=== PATIENT | female | born 1980 | race Caucasian/White ===

== ENCOUNTER 2018-10-20 15:13 | Emergency (ER) | payer SELFPAY ==
[~2018-10-20 15:13] MED LIST: ALPR-429 PO; CIT20 PO; CLO5 PO; CYCL10TA29 PO; FLU20 PO; IBU800 PO; IBUP800T37 PO; LOR5/325 PO; METR-1 PO; METR-119 PO; MOM PO; MULT-1379 PO; NAPR550T22 PO; NITR-105 PO; OXYC-373 PO; PER PO; PREN-85 PO; QUET25TA30 PO
[2018-10-20] MEDS ORDERED: NITROFURANTOIN MONO 100 MG PO ONE (16:05)
--- NOTE | 2018-10-20 16:05 | ER Report ---
History and Physical Time Seen By MD: 15:56 Hx. of Stated Complaint: Foul smelling urine HPI/ROS CHIEF COMPLAINT: Dysuria HISTORY OF PRESENT ILLNESS: 38-year-old female patient presents to emergency room with complaint of dysuria. Patient states that she has been having burning with urination for the past week. She states that it seems to come and go. She denies having any fevers, flank pain. She states she is not taking any medi cation for this. She denies any nausea, vomiting or diarrhea. Patient states that she feels like she has to go just as soon she is done urinating. Allergies: Coded Allergies: No Known Drug Allergies (Verified , 10/20/18) Home Meds Active Scripts Nitrofurantoin Monohyd/M-Cryst (MACROBID 100 MG CAPSULE) 100 Mg Capsule, 100 MG PO BID, #12 CAPSULE Prov:MAXWELL MENDOZA [facility] 10/20/18 Discontinued Reported Medications Multivits,Th W-Fe,Other Min (THERA-M) 1 Each Tablet, 1 EACH PO QDAY 11/10/17 Quetiapine Fumarate (SEROQUEL) 25 Mg Tablet, 25 MG PO Q4H PRN for PSYCHOSIS/AGITATION 11/10/17 Quetiapine Fumarate (SEROQUEL) 25 Mg Tablet, 50 MG PO QHS 11/10/17 Discontinued Scripts Nitrofurantoin Monohyd/M-Cryst (MACROBID 100 MG CAPSULE) 100 Mg Capsule, 100 MG PO BID, #12 CAPSULE Prov:MAXWELL MENDOZA [facility] 10/20/18 Past Medical/Surgical History Patient has a past medical history of alcohol abuse, depression, anxiety. Patient has a surgical history of tubal ligation. Reviewed Nurses Notes: Yes Hx Smoking: Yes Smoking Status: Light Tobacco Smoker Exposure to Second Hand Smoke?: Yes Hx Substance Use Disorder: No Hx Alcohol Use: Yes Constitutional Vital Sign - Last 24 Hours 10/20/18 10/20/18 15:17 16:17 Temp 97.1 Pulse 83 Resp 16 B/P (MAP) 127/102 125/82 (96) Pulse Ox 93 O2 Delivery Room Air Physical Exam General appearance: Alert no distress. Respiratory: Chest is non tender, lungs are clear to auscultation. Cardiac: Regular rate and rhythm. Gastrointestinal: Patient has no abdominal tenderness, bowel sounds are active 4, patient had no CVA tenderness. DIFFERENTIAL DIAGNOSIS: After history and physical exam differential diagnosis was considered for urinary tract infection, inflammation of the urethra. Medical Decision Making Data Points Laboratory Hematology Test 10/20/18 15:25 Urine Color Yellow Urine Clarity Clear Urine pH 6.0 pH (4.8-9.5) Urine Specific Collins 1.012 Urine Protein Negative mg/dL (NEGATIVE) Urine Glucose (UA) Negative mg/dL (NEGATIVE) Urine Ketones 20 mg/dL (NEGATIVE) Urine Blood Negative (NEGATIVE) Urine Nitrite Positive (NEGATIVE) Urine Bilirubin Negative (NEGATIVE) Urine Urobilinogen Negative mg/dL (0.2-1.9) Urine Leukocyte Esterase Trace (NEGATIVE) Urine RBC None /HPF (0-2/HPF) Urine WBC 8 /HPF (0-5/HPF) Urine Squamous Epithelial Cells Many /LPF (</=FEW) Urine Bacteria Many /HPF (NONE-FEW) Urine Mucus Few /HPF (NONE-FEW) Chemistry Test 10/20/18 15:25 Urine Color Yellow Urine Clarity Clear Urine pH 6.0 pH (4.8-9.5) Urine Specific Collins 1.012 Urine Protein Negative mg/dL (NEGATIVE) Urine Glucose (UA) Negative mg/dL (NEGATIVE) Urine Ketones 20 mg/dL (NEGATIVE) Urine Blood Negative (NEGATIVE) Urine Nitrite Positive (NEGATIVE) Urine Bilirubin Negative (NEGATIVE) Urine Urobilinogen Negative mg/dL (0.2-1.9) Urine Leukocyte Esterase Trace (NEGATIVE) Urine RBC None /HPF (0-2/HPF) Urine WBC 8 /HPF (0-5/HPF) Urine Squamous Epithelial Cells Many /LPF (</=FEW) Urine Bacteria Many /HPF (NONE-FEW) Urine Mucus Few /HPF (NONE-FEW) Urinalysis Test 10/20/18 15:25 Urine Color Yellow Urine Clarity Clear Urine pH 6.0 pH (4.8-9.5) Urine Specific Collins 1.012 Urine Protein Negative mg/dL (NEGATIVE) Urine Glucose (UA) Negative mg/dL (NEGATIVE) Urine Ketones 20 mg/dL (NEGATIVE) Urine Blood Negative (NEGATIVE) Urine Nitrite Positive (NEGATIVE) Urine Bilirubin Negative (NEGATIVE) Urine Urobilinogen Negative mg/dL (0.2-1.9) Urine Leukocyte Esterase Trace (NEGATIVE) Urine RBC None /HPF (0-2/HPF) Urine WBC 8 /HPF (0-5/HPF) Urine Squamous Epithelial Cells Many /LPF (</=FEW) Urine Bacteria Many /HPF (NONE-FEW) Urine Mucus Few /HPF (NONE-FEW) ED Course/Re-evaluation ED Course Patient was admitted on exam room, history and physical were obtained. Differential diagnoses were considered. On examination patient does have no CVA tenderness. A urinalysis was obtained. She did have positive nitrites, small leukocyte esterase with only 8 white blood cells per high-power field. It is p ossible that this could be contamination. However with the nitrites go ahead and treat more aggressively. A culture will be done. I discussed the findings with the patient. We'll go ahead and place her on Macrobid. We will discharge her home at this time. Patient requested that we give her something to get through to night as she is unable to afford picking up medications. Patient was given a dose of Macrobid 100 mg, one dose for tonight and one for tomorrow morning. Prescription was sent into the [facility] pharmacy. Patient verbalized understanding and agreement with plan. Decision to Disposition Date: Oct 20, 2018 Decision to Disposition Time: 16:11 Depart Departure Latest Vital Signs Vital Signs Date Time Temp Pulse Resp B/P (MAP) Pulse Ox O2 Delivery O2 Flow Rate FiO2 10/20/18 16:17 125/82 (96) 10/20/18 15:17 97.1 83 16 93 Room Air Impression: Primary Impression: UTI (urinary tract infection) Condition: Improved Disposition: HOME OR SELF-CARE New Scripts Nitrofurantoin Monohyd/M-Cryst (MACROBID 100 MG CAPSULE) 100 Mg Capsule 100 MG PO BID, #12 CAPSULE Prov: MAXWELL MENDOZA 10/20/18 Patient Instructions: Urinary Tract Infection in Women (ED) Additional Instructions: Increase fluid intake. Get plenty of rest. Follow up with your primary care provider in the next week. We will call with the results of the culture if we need to change the antibiotics. Problem Qualifiers Primary Impression: UTI (urinary tract infection) Urinary tract infection type: acute cystitis Hematuria presence: without hematuria Qualified Codes: N30.00 - Acute cystitis without hematuria MAXWELL MENDOZA Oct 20, 2018 16:05
[2018-10-20] MEDS ORDERED: NITR-105 PO ×2 (16:07→16:08)
[2018-10-20 16:17] VITALS: BP 125/82
== END 2018-10-20 16:18 | disposition home or self-care (01) ==
LOC: ER 15:45
DX: N30.00 Acute cystitis without hematuria (principal)
CPT/HCPCS: 81001; 87077; 87088; 87186; 99283

== ENCOUNTER 2019-06-28 16:53 | Emergency (ER) | payer SELFPAY ==
--- NOTE | 2019-06-28 16:55 | ER Report ---
History and Physical Time Seen By MD: 16:51 HPI/ROS CHIEF COMPLAINT: [] HISTORY OF PRESENT ILLNESS: [must have 4 elements] REVIEW OF SYSTEMS: Constitutional: [No fever, no chills.] Eyes: [No discharge.] ENT: [No sore throat.] Cardiovascular: [No chest pain, no palpitations.] Respiratory: [No cough, no shortness of breath.] Gastrointestinal: [No abdominal pain, no vomiting.] Genitourinary: [No hematuria.] Musculoskeletal: [No back pain.] Skin: [No rashes.] Neurological: [No headache.] Allergies: Coded Allergies: No Known Drug Allergies (Verified , 06/28/19) Home Meds Reported Medications Multivitamin With Minerals (MULTIPLE VITAMIN) 1 Each Tablet, 1 EACH PO PRN, TAB 06/28/19 Diphenhydramine Hcl (BENADRYL) 25 Mg Capsule, 25 MG PO PRN, CAPSULE 06/28/19 Discontinued Scripts Nitrofurantoin Monohyd/M-Cryst (MACROBID 100 MG CAPSULE) 100 Mg Capsule, 100 MG PO BID, #12 CAPSULE Prov:MAXWELL MENDOZA [employer] 10/20/18 Hx Smoking: Yes Smoking Status: Light Tobacco Smoker Exposure to Second Hand Smoke?: Yes Hx Substance Use Disorder: No Hx Alcohol Use: Yes Constitutional Vital Sign - Last 24 Hours 06/28/19 16:56 Temp 97.7 Pulse 89 Resp 20 B/P (MAP) 126/96 Pulse Ox 96 O2 Delivery Room Air Physical Exam General Appearance: [The patient is alert, has no immediate need for airway protection and no signs of toxicity.] [ ] [Eyes:] [Pupils equal and round no pallor or injection.] [ENT, Mouth:] [Mucous membranes are moist.] Respiratory: [There are no retractions, lungs are clear to auscultation.] Cardiovascular: [Regular rate and rhythm.] [ ] Gastrointestinal: [Abdomen is soft and non tender, no masses, bowel sounds normal.] [Neurological:] [ ] [Skin:] [Warm and dry, no rashes.] [Musculoskeletal:] [Neck is supple non tender.] [Extremities are nontender, nonswollen and have full range of motion.] [ ] [DIFFERENTIAL DIAGNOSIS: After history and physical exam differential diagnosis was considered for] [ ] Depart Departure Latest Vital Signs Vital Signs Date Time Temp Pulse Resp B/P (MAP) Pulse Ox O2 Delivery O2 Flow Rate FiO2 06/28/19 16:56 97.7 89 20 126/96 96 Room Air Condition: Stable Disposition: HOME OR SELF-CARE JO-ANN HOPPER DO Jun 28, 2019 16:55
[2019-06-28] MEDS ORDERED: MULT-1335 PO (17:04)
[2019-06-28] MEDS ORDERED: DIPH-740 PO (17:04)
--- NOTE | 2019-06-28 17:47 | ER Report ---
History and Physical Time Seen By MD: 17:43 Hx. of Stated Complaint: PT REPORTS INCREASED STRESS AT HOME, KIDS ARE NOT AT HOME CURRENTLY AND PT REPORTS BEING VERY SAD MISSING CHILDREN. PT REPORTS GOING HOME FROM WORK D/T INCREASED SADNESS AND NOW BOSS IS REQUIRING SHE HAS A "NOTE" TO RELEASE HER BACK TO WORK. HPI/ROS CHIEF COMPLAINT: Needs a note for work HISTORY OF PRESENT ILLNESS: 39-year-old female patient presents to emergency room with complaint of needing a note for work. Patient states that she had called into work today because she was feeling very sad. That she is at the one- year anniversary since her son was taken away from her. She states that she's been thinking about her kids quite a lot since then. She states that she does not have any suicidal ideation, any ideation for self-harm. She states that she does have an appointment with counseling scheduled on Thursday. She states that she has seen [facility] in the past, but has stopped going. She's also stopped taking her medication. She stopped trazodone cold turkey and stop Celexa under their direction. She states that she struggled with how she felt when she was quitting the Celexa. Allergies: Coded Allergies: No Known Drug Allergies (Verified , 06/28/19) Home Meds Reported Medications Multivitamin With Minerals (MULTIPLE VITAMIN) 1 Each Tablet, 1 EACH PO PRN, TAB 06/28/19 Diphenhydramine Hcl (BENADRYL) 25 Mg Capsule, 25 MG PO PRN, CAPSULE 06/28/19 Discontinued Scripts Nitrofurantoin Monohyd/M-Cryst (MACROBID 100 MG CAPSULE) 100 Mg Capsule, 100 MG PO BID, #12 CAPSULE Prov:MAXWELL MENDOZA [employer] 10/20/18 Past Medical/Surgical History Patient has a past medical history of migraines, alcohol use, depression, drug abuse, depression, anxiety. Patient has a surgical history of tubal ligation. Reviewed Nurses Notes: Yes Hx Smoking: Yes Smoking Status: Light Tobacco Smoker Exposure to Second Hand Smoke?: Yes Hx Substance Use Disorder: No Hx Alcohol Use: Yes Constitutional Vital Sign - Last 24 Hours 06/28/19 06/28/19 06/28/19 06/28/19 16:56 17:00 17:15 17:30 Temp 97.7 Pulse 89 82 90 75 Resp 20 B/P (MAP) 126/96 118/83 (95) 112/66 (81) Pulse Ox 96 94 93 94 O2 Delivery Room Air 06/28/19 06/28/19 17:45 18:00 Pulse 87 74 B/P (MAP) 107/58 (74) Pulse Ox 95 94 Physical Exam General appearance: Alert no distress. Respiratory: Chest is non tender, lungs are clear to auscultation. Cardiac: Regular rate and rhythm. Psych: Patient is tearful, she is able to maintain good eye contact, she is able to stay on topic. Her speech is appropriate. DIFFERENTIAL DIAGNOSIS: After history and physical exam differential diagnosis was considered for depression. Medical Decision Making ED Course/Re-evaluation ED Course Patient was admitted to an exam room, history and physical were obtained. Differential diagnoses were considered. On examination lungs are clear, heart was regular. Patient did have a an appropriate rate of speech, she was able to maintain good eye contact, she was able to stay on topic. The patient does have some depression. She has been on antidepressants past and did talk to the nurse about possibly getting started on a antidepressant. However since she has an appointment with the counselor not with a [facility] health provider I will go ahead and refrain from starting her on any antidepressants at this time. Reason for that is I am concerned about follow-up. I discussed this with the patient and she verbalized understanding. With her seeing a counselor she's not going be seeing a mental health provider anytime soon. I would be afraid to put her on a short-term course without close follow-up. Patient verbalized understanding and agreement with plan. We'll go ahead and discharge her home at this time. Decision to Disposition Date: Jun 28, 2019 Decision to Disposition Time: 18:03 Depart Departure Latest Vital Signs Vital Signs Date Time Temp Pulse Resp B/P (MAP) Pulse Ox O2 Delivery O2 Flow Rate FiO2 06/28/19 18:00 74 107/58 (74) 94 06/28/19 16:56 97.7 20 Room Air Impression: Primary Impression: Depression Condition: Improved Disposition: HOME OR SELF-CARE Patient Instructions: Depression (ED) Additional Instructions: Follow up with your counselor on Thursday as scheduled. Return to the ER if condition worsens. Find things that help with calming down and help relax you. Talk with your counselor about possible providers that you can follow up with for your mental health. Problem Qualifiers Primary Impression: Depression Depression Type: major depressive disorder Major depression recurrence: single episode Active/Remission status: currently active Major depression episode severity: moderate Qualified Codes: F32.1 - Major depressive disorder, single episode, moderate MAXWELL MENDOZA Jun 28, 2019 17:47
[2019-06-28 18:00] VITALS: BP 107/58
== END 2019-06-28 18:07 | disposition home or self-care (01) ==
LOC: ER 17:02
DX: F32.9 Major depressive disorder, single episode, unspecified (principal)
CPT/HCPCS: 99283